=== PATIENT | female | born 2000 | race Caucasian/White ===

== ENCOUNTER 2024-12-19 09:50 | Emergency (ER) | payer OTHER, SELFPAY ==
[2024-12-19 10:07] VITALS: BP 127/82; PULSE 87; RESP 16; TEMP 36.4; O2SAT 100
[2024-12-19 10:14] LABS: EDUAAPPEAR Cloudy; EDUABILI Negative (Negative); EDUABLOOD Negative (Negative); EDUACOLOR1 Yellow; EDUAGLUCOSE Negative (Negative); EDUAKETONE Negative (Negative); EDUALEUKO 2+ (Negative); EDUANITRATE Negative (Negative); EDUAPROTEIN 3+ (Negative); EDUASPGRAVITY 1.015; EDUAUROBILI 0.2
--- NOTE | 2024-12-19 10:20 | ED_ITS ---
HPI - Female Genitourinary General Chief complaint: Urogenital-Female Stated complaint: UTI SYMPTOMS Time Seen by Provider: 12/19/24 10:15 Source: patient and RN notes reviewed Mode of arrival: ambulatory Limitations: no limitations History of Present Illness HPI Narrative: 24-year-old female presents Express Care complaining of urinary symptoms for 2 days. Patient reports having dysuria, increased frequency, and lower abdominal discomfort. Patient denies any fevers, abdominal pain, body aches, back pain, chills, nausea, vomiting, diarrhea. Patient denies any concerns for STIs. Patient denies any vaginal bleeding, vaginal discharge, vaginal irritation. Patient has not taken anything [id number] for symptoms. Patient denies any significant past medical history. Related Data Allergies Allergy/AdvReac Type Severity Reaction Status Date / Time No Known Allergies Allergy Verified 12/19/24 10:03 Review of Systems Review of Systems: CONSTITUTIONAL: Denies fever, chills, body aches, or sweats. EYES: Denies visual changes, redness, or discharge. ENT: Denies rhinorrhea, congestion, sore throat, or otalgia. CARDIOVASCULAR: Denies chest pain, palpitations, or edema. RESPIRATORY: Denies cough or dyspnea. GASTROINTESTINAL: Denies abdominal pain, nausea, vomiting, or diarrhea. GENITOURINARY: Positive for dysuria, increased frequency. Negative for hematuria. SKIN: Denies rash or itching. MUSCULOSKELETAL: Denies back pain, joint pain, or myalgia. NEUROLOGIC: Denies headache, numbness, or weakness. PSYCHIATRIC: Denies anxiety or depression. All other systems reviewed are negative, except as documented in HPI. PMFSH Comments At the time of my signature, I reviewed and agree with the nursing past medical, surgical, social, and family history. There is no relevant family history pertinent to the patient complaint. Exam Narrative: GENERAL: This is a well-nourished, well-developed adult, in no apparent distress. They are non ill-appearing, nontoxic appearing. HEAD: normocephalic, atraumatic. EYES: Sclera clear/white. Vision is grossly intact. Conjunctiva normal bilaterally. Extraocular movements intact. EARS: External ears normal,Hearing grossly intact. NOSE: External nose normal THROAT: Mucous membranes moist NECK: Normal range of motion CARDIOVASCULAR: Regular rate and rhythm. Normal S1-S2. No clicks, gallops, rubs, murmurs. RESPIRATORY: Respiratory rate normal, respiratory effort nonlabored, no respiratory distress. Lung sounds clear to auscultation throughout. Lung sounds equal bilaterally. No adventitious lung sounds. GASTROINTESTINAL: Abdomen soft, flat, non-tender, nondistended. Bowel sounds are active. No hepato-splenomegaly, or palpable masses. No guarding. No rebound tenderness. SKIN: warm, Dry, intact with no suspicious lesions or rash, good texture and turgor. NEURO: awake, alert, and oriented to person, place and time. There were no obvious focal neurologic abnormalities. EXTREMITIES: No joint tenderness, effusion, or edema noted. BACK: Nontender without deformity. No CVA tenderness. Course Course Emergency Course: Portions of this record may have been created with voice recognition software Level of Care: Express Care Visit Vital Signs Vital signs: Vital Signs Temperature 97.6 F 12/19/24 10:07 Pulse Rate 87 12/19/24 10:07 Respiratory Rate 16 12/19/24 10:07 Blood Pressure 127/82 12/19/24 10:07 Pulse Oximetry 100 12/19/24 10:07 Temperature 97.6 F 12/19/24 10:07 Pulse Rate 87 12/19/24 10:07 Respiratory Rate 16 12/19/24 10:07 Blood Pressure 127/82 12/19/24 10:07 Pulse Oximetry 100 12/19/24 10:07 MDM - Female Genitourinary MDM Narrative Medical decision making narrative: Urine dipstick showed evidence of urinary tract infection. Urine culture pending. Will treat with cephalexin. Discussed physical exam findings. Advised supportive measures and signs/symptoms to go to the ER. Pt is appropriate for outpt treatment and f/u. Differential Diagnosis Differential diagnosis: Likely urinary tract infection, cystitis and other (Pyelonephritis) Lab Data Attestation: I reviewed the patient's lab results. Labs: Lab Results 12/19/24 Range/Units 10:12 POC Urine Color Yellow POC Urine Clarity Cloudy POC Urine pH 9.0 POC Ur Specif [place] 1.015 POC Urine Protein 3+ (Negative) POC Ur Glucose (UA) Negative (Negative) POC Urine Ketones Negative (Negative) POC Urine Blood Negative (Negative) POC Urine Nitrite Negative (Negative) POC Urine Bilirubin Negative (Negative) POC Urine Urobilinogen 0.2 POC U Leukocyte Esteras 2+ (Negative) Discharge Plan Discharge Clinical Impression: Urinary tract infection Qualifiers: Urinary tract infection type: site unspecified Hematuria presence: with hematuria Qualified Code(s): N39.0 - Urinary tract infection, site not specified Patient Disposition: Home Condition: Stable Instructions: Antibiotic Form, Urinary Tract Infection in Women (ED) Additional Instructions: Take the antibiotic as prescribed The urine will be sent of for a culture to identify what type of bacteria is causing your infection. If the culture shows that the antibiotic will not get rid of your infection, you will be notified and a new antibiotic will be called in for you. Increase water intake you will need to follow up with your PCP 3-5 days. Go to the ER for any worsening symptoms, abdominal pain, fevers, nausea, vomiting, or any other concerns Patient Language: Montenegrin Prescriptions: New cephalexin 500 mg capsule 500 mg PO BID 7 Days Qty: 14 0RF Follow-up/Referrals: Lanette,Dakota Regalado MD [Primary Care Provider] - Time of Disposition: 10:20
== END 2024-12-19 10:33 | disposition home or self-care (01) ==
PROVIDERS: PCP Family Medicine
DX: N39.0 Urinary tract infection, site not specified (principal)
CPT/HCPCS: 81003; 87086; 99203; G0463

== ENCOUNTER 2025-02-24 09:27 | Emergency (ER) | payer OTHER, SELFPAY ==
--- OUTSIDE RECORDS SUMMARY | 2025-02-24 09:29 | XMS_ITS | Clinical Summary ---
Author Organization [facility] Address [address] [place] [address] Care Team Providers Care Collection Specialist Name Role Phone Dakota Gama MD Primary Care Provider [phone] Allergies No known active allergies Medications sertraline (ZOLOFT) 50 MG tablet Take 3 tablets (150 mg total) by mouth daily. 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 Gender Identity Not on file Sexual Orientation Not on file Last Filed Vital Signs Vital Sign Reading Time Taken Comments Blood Pressure 123/67 04/23/2023 9:31 AM CDT Pulse 75 04/23/2023 9:31 AM CDT Temperature 36.8 C (98.2 F) 04/23/2023 9:31 AM CDT Respiratory Rate 22 04/22/2023 2:00 PM CDT Oxygen Saturation 98% 04/23/2023 9:31 AM CDT Inhaled Oxygen Concentration - - Weight 82.1 kg (181 lb) 04/21/2023 5:00 PM CDT Height 172.7 cm (5' 8) 04/21/2023 5:00 PM CDT Body Mass Index 27.52 04/21/2023 5:00 PM CDT Plan of Treatment Health Maintenance Due Date Last Done Comments Cervical Cancer Screening Pa p Smear (Age 21 to 29) Every 3 Years 2002 Cervical Cancer Screening 2002 Annual Physical 2005 HPV Vaccines (1 - 3-dose series) 2017 Meningococcal B Vaccine (2 o f 2 - Trumenba SCDM 2-dose series) 07/25/2019 01/22/2019 Hepatitis C 02/20/2020 DTaP, Tdap and Td Vaccines ( 1 - Tdap) 2021 Hepatitis B Vaccines (1 of 3 - 19+ 3-dose series) 2021 COVID-19 Vaccine (1 - 2023-2 5 season) 2024 RSV Immunization or 60+ Years (1 - 1-dose 75+ series) 2077 Meningococcal Vaccine Completed 01/22/2019 Pneumococcal Vaccine: Pediat rics (0 to 5 Years) and At-Risk Patients (6 to 49 Years) Aged Out No longer eligi ble based on patient's age to complete this topic RSV Immunizations Under 20 Months Aged Out No longer eligible based on patient's age to complete this topic Goals Goal Patient Goal Type Associated Problems Recent Progress Patient-Stated? Author Safety Patient/family will have appropriate support at home upon discharge Lifestyle No Leonor Bright, RN Insurance [facility] Advance Directives * Full Code (Latest Code Status on File) Date Activated Date Inactivated Comments 04/21/2023 5:27 PM 04/23/2023 2:33 PM Care Teams Collection Specialist Relationship Specialty Start Date End Date Dakota Gama MD [address] [place] [address] PCP - General FAMILY PRACTICE 04/17/23
--- OUTSIDE RECORDS SUMMARY | 2025-02-24 09:29 | XMS_ITS | Clinical Summary ---
Author Organization [facility] Address [address] [place] [address] Care Team Providers Care Head Holder Name Role Phone Dakota Gama MD Primary Care Provide r Source Comments [facility],non-owned Affiliates and Associated Physician Practices is amultiple site organization consisting of ambulatory clinics and hospital sitesin [place], [place], [place] and [place]. This disclosure is being madepursuant to the Care Everywhere program and may not contain all information available regarding this patient. Last updated 18.[facility] Allergies Active Allergy Reactions Criticality Noted Date Comments Fluoxetine Rash Medium 04/22/2022 Medications * Be aware that medications may not be up to date on this document. Alwaysverify current medications with the patient. famotidine (Pepcid) 20 MG tablet Take 1 (one) tablet by mouth once daily 30 tablet 1 04/22/2022 Active Social History Tobacco Use Types Packs/Day Years Used Date Smoking Tobacco: Never Assessed Comments Unknown Sex and Gender Information Value Date Recorded Sex Assigned at Not on file Legal Sex Female 10:29 AM CDT Gender Identity Not on file Sexual Orientation Not on file Last Filed Vital Signs Vital Sign Reading Time Taken Comments Blood Pressure 94/65 04/22/2022 10:43 AM CDT Pulse 72 04/22/2022 10:30 AM CDT Temperature 36.7 C (98.1 F) 04/22/2022 10:30 AM CDT Respiratory Rate 16 04/22/2022 10:30 AM CDT Oxygen Saturation 99% 04/22/2022 10:30 AM CDT Inhaled Oxygen Concentration - - Weight 51.3 kg (113 lb 1.5 oz) 04/22/2022 10:43 AM CDT Height 172.7 cm (5' 8) 04/22/2022 10:30 AM CDT Body Mass Index 17.2 04/22/2022 10:30 AM CDT Plan of Treatment Health Maintenance Due Date Last Done Comments HIV SCREENING 2017 HPV VACCINE (1 - 3-dose series) 2017 CHLAMYDIA/GONORRHEA SCREENING 2018 MENINGOCOCCAL (Group B) VACC INE SHARED DECISION-MAKING (1 of 2 - Standard) 2018 HEPATITIS C SCREENING 02/15/2020 DTAP/TDAP/TD VACCINES (1 - Tdap) 2021 HEPATITIS B VACCINE (1 of 3 - 19+ 3-dose series) 2021 PAP SMEAR 2023 COVID-19 VACCINE (1 - 2023-2 5 season) 2024 DEPRESSION SCREENING 07/18/2024 INFLUENZA VACCINE (#1) 2025 ZOSTER VACCINE (1 of 2) 02/20/2052 HIB VACCINE Aged Out No longer eligi ble based on patient's age to complete this topic MENINGOCOCCAL GROUPS A/C/Y/W VACCINE Aged Out No longer eligible b ased on patient's age to complete this topic PNEUMOCOCCAL VACCINE Aged Out No long er eligible based on patient's age to complete this topic Insurance [facility] Care Teams Head Holder Relationship Specialty Start Date End Date Dakota Gama MD [address] [place] [id number] PCP - General Family Medicine 04/22/22
[2025-02-24 09:36] VITALS: BP 118/86; PULSE 70; RESP 18; TEMP 36.1; O2SAT 100
--- NOTE | 2025-02-24 09:36 | ED_ITS ---
HPI - Female Genitourinary General Chief complaint: Urogenital-Female Stated complaint: UTI Time Seen by Provider: 02/24/25 09:36 Source: patient and RN notes reviewed Mode of arrival: ambulatory Limitations: no limitations History of Present Illness HPI Narrative: 25-year-old female presented for complaint of burning with urination, frequency and urgency. Onset 2 days. Denies hematuria, nausea, vomiting, abdominal pain, flank pain, constipation, diarrhea, fevers or chills. Pt has nexplanon. Denies concern for std. Related Data Home Medications ?Medication ?Instructions ?Recorded ?Confirmed ?Last Taken ?Type sertraline 100 mg tablet mg 02/24/25 Unknown History Allergies Allergy/AdvReac Type Severity Reaction Status Date / Time fluoxetine Allergy Mild Hives Verified 02/24/25 09:45 Review of Systems Review of Systems: CONSTITUTIONAL: Denies body aches, fever, chills, or sweats. CARDIOVASCULAR: Denies chest pain, palpitations, or edema. RESPIRATORY: Denies cough or dyspnea. GASTROINTESTINAL: Denies abdominal pain, nausea, vomiting, or diarrhea. GENITOURINARY: Reports dysuria, frequency, urgency, denies hematuria, flank pain, discharge SKIN: Denies rash, itching, or wounds. MUSCULOSKELETAL: Denies back pain or myalgia. PMFSH Comments At time of signature, I have reviewed and agree with nursing past medical, surgical, social and family history unless otherwise noted. Please see nursing chart for further information. There is no relevant family history pertinent to the presenting complaint Exam Narrative: GENERAL: Well-appearing and in no acute distress. ENT: Mucous membranes pink and moist. NECK: Normal AROM. Supple. CHEST: No respiratory distress. Clear to auscultation. HEART: Regular rate and rhythm. ABDOMEN: Soft, nontender, nondistended, normal active bowel sounds. No CVA tenderness SKIN: Warm, dry, no rash. NEURO: No focal deficits. Alert and oriented x3. Gait steady. PSYCH: Normal affect. Course Course Emergency Course: Patient is aware of diagnosis, understands and agrees to treatment plan. Anticipatory guidance given. Patient agrees to follow-up as directed and is aware of reasons to seek care at the emergency department. Portions of this record may have been created with voice recognition software Level of Care: Express Care Visit Vital Signs Vital signs: Reviewed MDM - Female Genitourinary MDM Narrative Medical decision making narrative: Discussed physical exam findings and urine dip. Pt is aware the culture can take up to one week to result, and pt is agreeable to start abx at this time per shared decision making. Advised supportive measures and signs/symptoms to go to the ER. Pt is appropriate for outpt treatment and f/u. Differential Diagnosis Differential diagnosis: Likely urinary tract infection and cystitis Discharge Plan Discharge Clinical Impression: Dysuria Patient Disposition: Home Condition: Stable Instructions: Antibiotic Form, Urinary Tract Infection in Women (ED) Additional Instructions: Take the antibiotic as prescribed The urine will be sent of for a culture to identify what type of bacteria is causing your infection. If the culture shows that the antibiotic will not get rid of your infection, you will be notified and a new antibiotic will be called in for you. Increase water intake you will need to follow up with your PCP, call to schedule an appointment. Go to the ER for any worsening symptoms or concerns Patient Language: Albanian Prescriptions: New phenazopyridine [Pyridium] 200 mg tablet 200 mg PO TID 2 Days Qty: 6 0RF nitrofurantoin monohyd/m-cryst [Macrobid] 100 mg capsule 100 mg PO Q12H 5 Days Qty: 10 0RF Rx Instructions: must administer with a meal/food No Action sertraline 100 mg tablet Follow-up/Referrals: Lanette,Dakota Regalado MD [Primary Care Provider] -
[2025-02-24 09:44] LABS: EDUAAPPEAR Clear; EDUABILI Negative (Negative); EDUABLOOD 2+ (Negative); EDUACOLOR1 Yellow; EDUAGLUCOSE Negative (Negative); EDUAKETONE Negative (Negative); EDUALEUKO 1+ (Negative); EDUANITRATE Negative (Negative); EDUAPH 6.5; EDUAPROTEIN 2+ (Negative); EDUASPGRAVITY 1.015; EDUAUROBILI 0.2
== END 2025-02-24 09:49 | disposition home or self-care (01) ==
PROVIDERS: Emergency Provider Nurse Practitioner Family; PCP Family Medicine
DX: R30.0 Dysuria (principal); K21.9 Gastro-esophageal reflux disease without esophagitis; K31.84 Gastroparesis; F41.9 Anxiety disorder, unspecified; F32.A Depression, unspecified
CPT/HCPCS: 81003; 87086; 99213; G0463

== ENCOUNTER 2025-04-17 11:48 | Emergency (ER) | payer OTHER, SELFPAY ==
[2025-04-17 12:00] VITALS: BP 122/85; PULSE 94; RESP 18; TEMP 36.1; O2SAT 100
[2025-04-17 12:07] LABS: EDUAAPPEAR Cloudy; EDUABILI 1+ (Negative); EDUABLOOD 3+ (Negative); EDUACOLOR1 Dark; EDUAGLUCOSE Negative (Negative); EDUAKETONE Trace (Negative); EDUALEUKO 3+ (Negative); EDUANITRATE Negative (Negative); EDUAPH 7.5; EDUAPROTEIN 3+ (Negative); EDUASPGRAVITY 1.020; EDUAUROBILI 1.0
--- OUTSIDE RECORDS SUMMARY | 2025-04-17 12:16 | XMS_ITS | Clinical Summary ---
Author Organization [facility] Address [address] [place] [address] Care Team Providers Care Melangeur Operator Name Role Phone Dakota Gama MD Primary Care Provider [phone] Allergies No known active allergies Medications sertraline [...] on file Legal Sex Female 2:44 PM [employer] Gender Identity Not on file Sexual Orientation [...] COVID-19 Vaccine (1 - 2023-2 5 season) 2025 RSV Immunization or 60+ Years (1 - [...] discharge Lifestyle No Leonor Bright, RN Insurance [facility] Advance Directives * Full Code (Latest Code Status on File) Date Activated Date Inactivated Comments 04/21/2023 5:27 PM 04/23/2023 2:33 PM Care Teams Melangeur Operator Relationship Specialty Start Date End Date Dakota Gama MD [address] [place] [address] PCP - General FAMILY PRACTICE 04/17/23
--- OUTSIDE RECORDS SUMMARY | 2025-04-17 12:16 | XMS_ITS | Clinical Summary ---
Author Organization [facility] Address [address] [place] [address] Care Team Providers Care Market Development Manager Name Role Phone Dakota Gama MD Primary Care Provide r Source Comments [facility],non-owned Affiliates and Associated Physician Practices is amultiple site organization consisting of ambulatory clinics and hospital sitesin [place], [place], [place] and [place]. This disclosure is being madepursuant to the Care Everywhere program and may not contain all information available regarding this patient. Last updated 18.[facility] [employer] [facility] Allergies Active Allergy Reactions Criticality Noted Date [...] 19+ 3-dose series) 2021 PAP SMEAR 2023 DEPRESSION SCREENING 07/18/2024 COVID-19 VACCINE (1 - 2023-2 5 season) 2025 INFLUENZA VACCINE (#1) 2025 ZOSTER VACCINE (1 of 2) 02/20/2052 HIB VACCINE Aged Out No longer eligi ble based on patient's age to complete this topic MENINGOCOCCAL GROUPS A/C/Y/W VACCINE Aged Out No longer eligible b ased on patient's age to complete this topic PNEUMOCOCCAL VACCINE Aged Out No long er eligible based on patient's age to complete this topic Insurance [facility] Care Teams Market Development Manager Relationship Specialty Start Date End Date Dakota Gama MD [address] [place] [id number] PCP - General Family Medicine 04/22/22
--- OUTSIDE RECORDS SUMMARY | 2025-04-17 12:17 | XMS_ITS | Data Portability ---
Author Organization [facility], [address] [facility] ([place]) Address [address] [place] [address] Care Team Providers Care Photographic Press Screwmaker Name Role Phone CIPRIANODAKOTA Primary Care Provider Assessment Encounter Date Assessment Date Assessment LastModified by Organization Details LastModified Time 02/08/2024 02/08/2024 Urine dip was positive for leukocytes and hematuria. We will send this off for culture. I started her on Cipro twice a day for 5 days and we will contact her with the culture report and further recommendations if indicated. I did ask her if her symptoms were not completely resolved with the antibiotic to contact us. Plan of care discussed with the patient and questions were answered. Understanding verbalized. kg [email or web address] Not available 02/09/2024 11:34:32 06/11/2024 06/11/2024 We will continue her current regimen and see her back in person in 6 months. llm [email or web address] Not available 06/11/2024 15:08:58 Plan of Treatment Reminders Order Date Submit Date Provider Last Modified By Organization Details Last Modified Time Details Appointments None recorded. Lab urinalysis, dipstick 2023 024 [id number] [facility] Only - [facility], [facility] [place] [address], [id number], 4 12:05:04 culture + sensitivity , urine 2023 024 MOLLY [facility] Only - [facility], [address] [place] [address], [id number], 4 11:54:11 Referral None recorded. Procedures None recorded. Surgeries None recorded. Imaging None recorded. Medication Orders sertraline [address] [facility] #[id number], [address] [place], [address], 14:55:59 Cipro [address] [facility] #[id number], [address] [place], [address], 14:32:42 Patient TargetsNo targets recorded. Patient InstructionsNo instructions recorded. Reason for Referral None Reported. Results Created Date Observation Date Name Description Value Unit Range Abnormal Flag Note LastModifiedBy Organization Detail LastModifiedTime 02/08/2002/08/2024 urina lysis , dipst ick manual urine dipstick pH value s of 5 or 9 indic ates a value <=5 or >=9. Speci fic gravi ty value of 1.005 indic ates a value of <=1.0 05 Speci fic gravi ty value of 1.030 indic ates a value of >=1.0 30 Not Available [facility] [address] [place] [address], [id number], 02/08/2024 17:47:43 02/08/20 24 02/08/2024 urina lysis , dipst ick color YELLO Not Available [facility] [address] [place] [address], [id number], 02/08/2024 17:47:43 02/08/20 24 02/08/2024 urina lysis , dipst ick appearance CLEAR Not Available [facility] [address] [place] [address], [id number], 02/08/2024 17:47:43 02/08/20 24 02/08/2024 urina lysis , dipst ick sp gravity 1.025 1.005- 1.030 Not Available [facility] [address] [place] [address], [id number], 02/08/2024 17:47:43 02/08/20 24 02/08/2024 urina lysis , dipst ick pH 7.0 5.0-7. 5 Not Available [facility] [address] [place] [address], [id number], 02/08/2024 17:47:43 02/08/20 24 02/08/2024 urina lysis , dipst ick protein 3+ negati ve abnormal Not Available [facility] [address] [place] [address], [id number], 02/08/2024 17:47:43 02/08/2002/08/2024 urina lysis , dipst ick glucose NEG negati ve Not Available [facility] [address] [place] [address], [id number], 02/08/2024 17:47:43 02/08/20 24 02/08/2024 urina lysis , dipst ick ketone NEG negati ve Not Available [facility] [address] [place] [address], [id number], 02/08/2024 17:47:43 02/08/20 24 02/08/2024 urina lysis , dipst ick bilirub NEG negati ve Not Available [facility] [address] [place] [address], [id number], 02/08/2024 17:47:43 02/08/2002/08/2024 urina lysis , dipst ick blood 3+ negati ve abnormal Not Available [facility] [address] [place] [address], [id number], 02/08/2024 17:47:43 02/08/20 24 02/08/2024 urina lysis , dipst ick urobil 0.2 <=1.0 Not Available [facility] [address] [place] [address], [id number], 02/08/2024 17:47:43 02/08/20 24 02/08/2024 urina lysis , dipst ick nitrite NEG negati ve Not Available [facility] [address] [place] [address], [id number], 02/08/2024 17:47:43 02/08/20 24 02/08/2024 urina lysis , dipst ick leuk 3+ negati ve abnormal Not Available [facility] [address] [place] [address], [id number], 02/08/2024 17:47:43 02/08/20 24 02/10/2024 cultu re + sensi tivit y, urine urine culture and sens. SERINA L URINE 70,00 0 CFU/m L Mixed bacte rial didier , 3 or more colon y types ; indic ative of conta minat ion. Sugge st recol lecti on if clini judith indic ated. Not Available [facility] [address] [place] [address], [id number], 02/10/2024 11:54:11 Result Notes None recorded. Problems Name Problem SNOMED Code Status Onset Date Resolution Date Notes Provider Name and Address Organization Details Recorded Time Urinary symptoms 021538677 Active 024 [facility] 4 12:07:43 Problem Notes None recorded. Medical Equipment None Reported. Allergies Allergen ID Allergen Name Allergen Category Reaction Reaction Severity Criticality Documentation Date Start Date Code Code System Note Provider Name and Address Organization Details Recorded Time 7062156 fluoxetin e hydrochlo ride medicatio n hives Not available Not available 08/17/20232019 89001 4 RxNorm React ion: Hives ; Not Available [facility] 4 04:12:28 Medications Name Sig Start Date Stop Date Status Note LastModified by Organization Details LastModified Time status covid-19/fl u a&b antigen tst TEST DIRECTED TODAY 02/07 completed Not Available Not Available Not Available sertraline 100 mg tablet TAKE 2 TABLETS BY MOUTH EVERY DAY 2024 active Not Available Not Available Not Avai lable hydroxyzine HCl 50 mg tablet TAKE 1 TABLET BY MOUTH EVERYDAY AT BEDTIME 02/07 completed Not Available Not Available Not Available ciprofloxac in 250 mg tablet TAKE 1 TABLET BY MOUTH EVERY 12 HOURS FOR 5 DAYS 06/11 completed Not Available Not Available Not Available cephalexin 500 mg capsule TAKE 1 CAPSULE BY MOUTH TWICE DAILY FOR 7 DAYS 01/21 completed Not Available Not Available Not Available cephalexin 500 mg tablet TAKE 1 TABLET BY MOUTH TWICE A DAY 02/07 completed Not Available Not Available Not Available nitrofurant oin monohydrate /macrocryst als 100 mg capsule TAKE 1 CAPSULE BY MOUTH TWICE A DAY FOR 5 DAYS active Not Available Not Available No t Available Vitals Date Recorded Body weight Body temperature Heart rate Oxygen saturation Oxygen saturation in Arterial blood by Pulse oximetry Systolic And Diastolic Provider Name and Address Organization Details Last Updated DateTime 92579.6 7 g 97.5 [degF] 79 /min 99 % 99 % 128/88 mm[Hg] [facility] 14:37[facility] Social History None recorded. Functional Status None recorded. Mental Status None recorded. Family History Nothing Reported. Medical History No medical history recorded. Gynecological HistoryNo gynecological history recorded. Obstetrics History GPAL:G 0 P 0 0 0 0 Immunizations Vaccine Type Date Status Note Provider Nam e and Address Organization Details Recorded Time meningococcal B, recombinant 9 [facility] 02/08/2024 14:34:43 meningococcal MCV4P 9 completed [facility] 02/08/2024 14:34:43 Past Encounters Encounter ID Performer Location Encounter Start Date Encounter Closed Date Diagnosis/Indication Diagnosis SNOMED-CT Code Diagnosis ICD10 Code Diagnosis IMO Codes Diagnosis Note [id number] Roxanne Lam APRN, [facility] ([place]) [facility] [place] [address] 02/08/2024 14:25:48 02/08/2024 15:27:00 Urinary symptoms 250871625 R39.9 Acute urin luz tract infection 606977230 N39.0 [id number] Dakota Gama MD [facility] ([place]) [address] [place] [address] 06/11/2024 14:27:57 06/11/2024 15:06:30 Anorexia nervosa 08455574 F50.00 Long-term current use of drug therapy 583161290 Z79.622 8057634 Health Concerns Section Related Observation LastModified by Organization Detai ls LastModified Time None Recorded Concern Status LastModified by Organization Details LastModified Time None Recorded Advance Directives Directive None Recorded Payers Insurance Date Sequence Insurance Name Policy Number Policy Grimm Covered Member ID Grimm Member ID Guarantor Name 02/08/2024 1 [facility] Miryam Manolo Haider [id number] Miryam N Haider 06/06/2024 1 [employer] [facility] [id number] Miryam N Haider [id number] Miryam N Haider 01/22/2025 1 [employer] ([place]) [id number] Miryam N Haider [id number] Miryam N Haider 02/11/2025 1 [employer] [facility] [employer] (POS) [id number] Bert Anthonyoggins [id number] Miryam French Haider 02/11/2025 1 [employer] (POS) [id number] 004 Bert Garcia Haider [id number] Miryam N Haider Notes Date Note Type Note Provider Name and Address Organization Details Recorded Time 02/08/2024 text/html Dysuria symptoms. She states that she was previously treated twice for a UTI, once on January 19 at [facility] in [place] but then was called later and her antibiotic was switched on January 23. She was treated originally with cephalexin and the culture was resistant to this so she was then started on nitrofurantoin for 3 days. She did complete both antibiotics as prescribed. She states that she started to feel some better but her symptoms did not completely resolve and she did not call the clinic back to discuss that with them until recently and they recommended that she see her primary care provider which brought her in here. She does have a history of gastroparesis and does have intermittent diarrhea. She denies flank pain, fever, but does admit to dysuria, hematuria, some nausea and chills. urinary s/s-pt states she was seen at [facility] in [place] on 01/20/24 Second round started on 01/23.-received ABX and UA sent for culture-ABX was changed after culture result received by provider at [facility]-finished ABX-started yesterday with burning with urination, urgency, chills, and N/V. Roxanne Lam, DIALYSIS TECHNICIAN, WEB SITE ADMINISTRATOR [address] [place] [address], [phone], [facility] 02/14/2024 11:33:18 06/11/2024 text/html I am seeing her today via telehealth for follow-up of her anorexia nervosa and anxiety. Doing well on the sertraline 200 mg daily. Eating well overall, although she has had some lapses at times and feels like she is in a good spot with her studies and her relationships. No thoughts of harming herself or others. Dakota Gama MD [address] [place] [address], [phone], [facility] 06/12/2024 08:14:10 OBGyn Episode No OBEpisode recorded.
--- NOTE | 2025-04-17 12:59 | ED.FEMALEGU ---
HPI - Female Genitourinary General Chief complaint: Urogenital-Female Stated complaint: UTI Time Seen by Provider: 04/17/25 12:15 Source: patient and RN notes reviewed Mode of arrival: ambulatory Limitations: no limitations History of Present Illness HPI Narrative: 25 year old female presents Express Care complaining of urinary symptoms for 1 day.. Patient reports having dysuria, increased frequency, and hesitancy. Patient denies any fevers, abdominal pain, body aches, chills, nausea, vomiting, diarrhea, vaginal discharge, vaginal bleeding, no hematuria, or any other symptoms.. Patient has not taken anything [id number] for symptoms. Patient denies any significant past medical history. Patient reports she has a history of UTIs this a she has had recurrent UTIs this year but is not yet follow-up with the doctor. Related Data Home Medications ?Medication ?Instructions ?Recorded ?Confirmed ?Last Taken ?Type sertraline 100 mg tablet mg 02/24/25 Unknown History etonogestrel 68 mg subdermal 1 implant subdermal ONCE 04/17/25 04/17/25 Unknown History implant Allergies Allergy/AdvReac Type Severity Reaction Status Date / Time fluoxetine Allergy Mild Hives Verified 04/17/25 12:04 Review of Systems Review of Systems: CONSTITUTIONAL: Denies fever, chills, body aches, or sweats. EYES: Denies visual changes, redness, or discharge. ENT: Denies rhinorrhea, congestion, sore throat, or otalgia. CARDIOVASCULAR: Denies chest pain, palpitations, or edema. RESPIRATORY: Denies cough or dyspnea. GASTROINTESTINAL: Denies abdominal pain, nausea, vomiting, or diarrhea. GENITOURINARY: Positive for dysuria, hesitancy, increased frequency. Negative for hematuria, vaginal bleeding, vaginal discharge, pelvic pain. SKIN: Denies rash or itching. MUSCULOSKELETAL: Denies back pain, flank pain, joint pain, or myalgia. NEUROLOGIC: Denies headache, numbness, or weakness. PSYCHIATRIC: Denies anxiety or depression. All other systems reviewed are negative, except as documented in HPI. PMFSH Comments At the time of my signature, I reviewed and agree with the nursing past medical, surgical, social, and family history. There is no relevant family history pertinent to the patient complaint. Exam Narrative: GENERAL: This is a well-nourished, well-developed adult, in no apparent distress. They are non ill-appearing, nontoxic appearing. HEAD: normocephalic, atraumatic. EYES: Sclera clear/white. Vision is grossly intact. Conjunctiva normal bilaterally. Extraocular movements intact. EARS: External ears normal,Hearing grossly intact. NOSE: External nose normal THROAT: Mucous membranes moist NECK: Normal range of motion CARDIOVASCULAR: Regular rate and rhythm. Normal S1-S2. No clicks, gallops, rubs, murmurs. RESPIRATORY: Respiratory rate normal, respiratory effort nonlabored, no respiratory distress. Lung sounds clear to auscultation throughout. Lung sounds equal bilaterally. No adventitious lung sounds. GASTROINTESTINAL: Abdomen soft, flat, non-tender, nondistended. Bowel sounds are active. No hepato-splenomegaly, or palpable masses. No guarding. No rebound tenderness. SKIN: warm, Dry, intact with no suspicious lesions or rash, good texture and turgor. NEURO: awake, alert, and oriented to person, place and time. There were no obvious focal neurologic abnormalities. EXTREMITIES: No joint tenderness, effusion, or edema noted. BACK: Nontender without deformity. No CVA tenderness. Course Course Emergency Course: Portions of this record may have been created with voice recognition software Level of Care: Express Care Visit Vital Signs Vital signs: Vital Signs Temperature 96.9 F L 04/17/25 12:00 Pulse Rate 94 04/17/25 12:00 Respiratory Rate 18 04/17/25 12:00 Blood Pressure 122/85 04/17/25 12:00 Pulse Oximetry 100 04/17/25 12:00 Oxygen Delivery Room Air 04/17/25 12:00 Temperature 96.9 F L 04/17/25 12:00 Pulse Rate 94 04/17/25 12:00 Respiratory Rate 18 04/17/25 12:00 Blood Pressure 122/85 04/17/25 12:00 Pulse Oximetry 100 04/17/25 12:00 Oxygen Delivery Room Air 04/17/25 12:00 MDM - Female Genitourinary MDM Narrative Medical decision making narrative: Urine dipstick consistent with urinary tract infection. Urine culture pending. Patient's symptoms clinically consistent with urinary tract infection. Patient has not been on antibiotic and last month. Will go ahead and treat with Macrobid. Advised patient to follow-up with PCP for her recurrent UTI is says she may need to see urologist this continues to persist. Urinary hygiene discussed with patient. Discussed physical exam findings. Advised supportive measures and signs/symptoms to go to the ER. Pt is appropriate for outpt treatment and f/u. Differential Diagnosis Differential diagnosis: Likely urinary tract infection, cystitis and other (Pyelonephritis) Lab Data Attestation: I reviewed the patient's lab results. Labs: Lab Results 04/17/25 Range/Units 12:05 POC Urine Color Dark POC Urine Clarity Cloudy POC Urine pH 7.5 POC Ur Specif [place] 1.020 POC Urine Protein 3+ (Negative) POC Ur Glucose (UA) Negative (Negative) POC Urine Ketones Trace (Negative) POC Urine Blood 3+ (Negative) POC Urine Nitrite Negative (Negative) POC Urine Bilirubin 1+ (Negative) POC Urine Urobilinogen 1.0 POC U Leukocyte Esteras 3+ (Negative) Discharge Plan Discharge Clinical Impression: Urinary tract infection Qualifiers: Urinary tract infection type: site unspecified Hematuria presence: with hematuria Qualified Code(s): N39.0 - Urinary tract infection, site not specified Patient Disposition: Home Condition: Stable Instructions: Antibiotic Form, Urinary Tract Infection in Women (ED) Additional Instructions: Take the antibiotic as prescribed The urine will be sent of for a culture to identify what type of bacteria is causing your infection. If the culture shows that the antibiotic will not get rid of your infection, you will be notified and a new antibiotic will be called in for you. Increase water intake you will need to follow up with your PCP 3-5 days. Go to the ER for any worsening symptoms, abdominal pain, fevers, nausea, vomiting, or any other concerns Patient Language: [place] Prescriptions: New nitrofurantoin monohyd/m-cryst [Macrobid] 100 mg capsule 100 mg PO Q12H 5 Days Qty: 10 0RF Rx Instructions: must administer with a meal/food No Action sertraline 100 mg tablet etonogestrel 68 mg implant 1 implant subdermal ONCE Rx Instructions: as a single dose Follow-up/Referrals: Lanette,Dakota Regalado MD [Primary Care Provider, General Surgery] Time of Disposition: 12:31
== END 2025-04-17 12:34 | disposition home or self-care (01) ==
PROVIDERS: PCP Family Medicine
DX: N39.0 Urinary tract infection, site not specified (principal)
CPT/HCPCS: 81003; 87086; 99213; G0463